=== PATIENT | female | born 1975 | race African-American/Black ===

== ENCOUNTER → 2019-06-30 | Outpatient (CLI) | payer BC, OTHER ==
[~2019-06-30] MED LIST: NORCO 5-325 TA1 EACH PO
== END ==
LOC: RAD 12:57
DX: Z12.31 Encounter for screening mammogram for malignant neoplasm of breast (principal)

== ENCOUNTER → 2019-07-07 | Outpatient (CLI) | payer BC, OTHER | LOC: ULTRA 01:16 | DX: N60.01 Solitary cyst of right breast (principal) ==

== ENCOUNTER → 2020-03-08 | Outpatient (CLI) | payer BC, OTHER | LOC: ULTRA 09:41 → RAD 09:41 → ULTRA 12:10 | PROVIDERS: ATTEND Internal Medicine | DX: N63.10 Unspecified lump in the right breast, unspecified quadrant (principal); R92.2 Inconclusive mammogram ==